=== PATIENT | male | born 1955 | race Caucasian/White ===

== ENCOUNTER 2016-09-20 09:17 | Day surgery (SDC) | payer BC ==
[~2016-09-20 09:17] MED LIST: ALBUTEROL NEB SOL 2.5MG/3ML 1 VIAL SOL ONE; CEFAZOLIN SODIUM 1 GM PDS ONE; MIDAZOLAM 2 MG/2 ML SOL ONE; PROPOFOL 10 MG/ML EMU IV ONE; PROPOFOL 500 MG/50 ML EMU IV ONE
[2016-09-20 11:52] VITALS: BP 132/80; PULSE 54; RESP 20; TEMP 97.2; O2SAT 98
== END 2016-09-20 12:05 | disposition home or self-care (01) ==
LOC: SURG 09:17
PROVIDERS: ATTEND Surgery
DX: Z12.11 Encounter for screening for malignant neoplasm of colon (principal); Z86.010 Personal history of colon polyps; D12.2 Benign neoplasm of ascending colon; K63.5 Polyp of colon; K62.1 Rectal polyp
CPT/HCPCS: 45385; 99001; J2001; J2704; J0690; J2250; J7603